=== PATIENT | male | born 1980 | race Caucasian/White ===

== ENCOUNTER 2022-01-17 14:00 | Emergency (ER) | payer BC ==
--- OUTSIDE RECORDS SUMMARY | 2022-01-17 14:05 | XMS REPORT | Continuity of Care Document ---
:1980 Author Organization [facility] t Address [address] [place] [address] Care Team Providers Name Role Phone [place] Marquise Vega Attending Clinician Unavailable EBONIE LYLES Attending Clinician Unavailable ALISON MCCARTHY Attending Clinician Unavailable Neeraj Root DO Attending Clinician Alison Hdez Attending Clinician Eve Hussein Attending Clinician Yaya Carroll Attending Clinician Unavailable EBONIE LYLES Admitting Clinician Unavailable Physician, No Primary or Family Admitting Clinician [facility] Payers Payer Name Policy Type Policy Number Effective Date Expiration Date S elan [facility] - [id number] 2013 00:00:00 OUT OF STATE Problems Condition Condition Condition Status Onset Resolution Last Treating Co mments Source Name Details Category Date Date Treatment Clinician Date No known No known Disease Unive rs active active ity of problems problems [facility] Allergies, Adverse Reactions, Alerts Allergy Allergy Status Severity Reaction(s) Onset Inactive Treating Comm ents Source Name Type Date Date Clinician gluten FA Active [facility] 7[facility] [place] [facility] gluten FA Active U internal [facility] bleed 7-16 [place] 00:00: d 00 [facility] NO KNOWN Drug Active Univers ALLERGIE Class ity of S [facility] Sudafed Adverse Active shortness of Co mmon Reaction breath [facility] Social History Social Habit Start Date Stop Date Quantity Comments Source Exposure to Not sure [facility] SARS-CoV-2 [facility] (event) Branch History of Chews Tobacco University of tobacco use [facility] Tobacco use and 2020-08-17 2020-08-17 Former user Universi ty of exposure 00:00:00 00:00:00 [facility] Sex Ass[birth year] At [birth year] [facility] y of 00:00:00 00:00:00 [facility] Smoking Status Start Date Stop Date Source Former smoker 2020-08-17 00:00:00 2020-08-17 00:00:00 [facility] Unknown if ever smoked [facility] Medications Ordered Filled Start Stop Current Ordering Indication Dosage Frequency Signature Comments Components Source Medication Medication Date Date Medication? Clinician (SIG) Name Name OMEPRAZOLE Yes 1{tbl} Take 1 Uni vers ORAL 3-01 tablet by ity of 19:33: mouth. [address] OMEPRAZOLE Yes 1{tbl} Take 1 Uni vers ORAL 3-01 tablet by ity of 19:33: mouth. [address] OMEPRAZOLE Yes 1{tbl} Take 1 Uni vers ORAL 3-01 tablet by ity of 19:33: mouth. [address] OMEPRAZOLE Yes 1{tbl} Take 1 Uni vers ORAL 3-01 tablet by ity of 19:33: mouth. [address] traZODone Yes TAKE 1 Univer s 100 mg 2-23 TABLET BY ity of tablet 00:00: MOUTH AT [address] NOVOLOG 100 Yes Univer s unit/mL 2-23 ity of cartridge 00:00: [address] traZODone Yes TAKE 1 Univer s 100 mg 2-23 TABLET BY ity of tablet 00:00: MOUTH AT [address] NOVOLOG 100 2021-0 Yes Univer s unit/mL 2-23 ity of cartridge 00:00: Medical Branch traZODone 2020-0 Yes TAKE 1 Univer s 100 mg 2-23 TABLET BY ity of tablet 00:00: MOUTH AT [place] 00 BEDTIME Medical Branch NOVOLOG 100 2020-0 Yes Univer s unit/mL 2-23 ity of cartridge 00:00: Medical Branch traZODone 2020-0 Yes TAKE 1 Univer s 100 mg 2-23 TABLET BY ity of tablet 00:00: MOUTH AT [place] 00 BEDTIME Medical Branch NOVOLOG 100 0 Yes Univer s unit/mL 2-23 ity of cartridge 00:00: [place] [facility] HYDROcodone 2020-0 2020- No 1{tbl} 1 tablet, Univers -acetaminop 08-04 Oral, ity of hen (NORCO 22:45: 22:11 ONCE, 1 Billy as 5) 5-325 mg 00 :00 dose, Tue Med ical tablet 1 08/04/20 at [facility] tablet 1645, KAMALJIT ketorolac 2020- No 60mg 60 mg, Unive rs (TORADOL) 08-04 Intramuscu ity of injection 22:45: 22:11 lar, ONCE, [place] 60 mg 00 :00 1 dose, [facility] 08/04/20 at 1645, KAMALJIT
Fa culty member approving Restricted medication : EMERGENCY ROOM, ibuprofen Yes [id number] 800mg Take 1 Univers 800 mg 2-16 [id number] tablet by ity of tablet 00:00: mouth [place] 00 every 8 Medical (eight) Branch hours as needed for Pain (scale 4-6). ibuprofen Yes [id number] 800mg Take 1 Univers 800 mg 2-16 [id number] tablet by ity of tablet 00:00: mouth [place] 00 every 8 Medical (eight) Branch hours as needed for Pain (scale 4-6). ibuprofen Yes [id number] 800mg Take 1 Univers 800 mg 2-16 [id number] tablet by ity of tablet 00:00: mouth [place] 00 every 8 Medical (eight) Branch hours as needed for Pain (scale 4-6). ibuprofen Yes [id number] 800mg Take 1 Univers 800 mg 2-16 [id number] tablet by ity of tablet 00:00: mouth [place] 00 every 8 Medical (eight) Branch hours as needed for Pain (scale 4-6). ibuprofen 2020-0 Yes [id number] 800mg Take 1 Univers 800 mg 2-16 [id number] tablet by ity of tablet 00:00: mouth [place] 00 every 8 Medical (eight) Branch hours as needed for Pain (scale 4-6). ibuprofen 2020-0 Yes [id number] 800mg Take 1 Univers 800 mg 2-16 [id number] tablet by ity of tablet 00:00: mouth [place] 00 every 8 Medical (eight) Branch hours as needed for Pain (scale 4-6). ibuprofen 2020-0 Yes [id number] 800mg Take 1 Univers 800 mg 2-16 [id number] tablet by ity of tablet 00:00: mouth [place] 00 every 8 Medical (eight) Branch hours as needed for Pain (scale 4-6). ibuprofen 2020-0 Yes [id number] 800mg Take 1 Univers 800 mg 2-16 [id number] tablet by ity of tablet 00:00: mouth [place] 00 every 8 Medical (eight) Branch hours as needed for Pain (scale 4-6). acetaminoph 2020- No 4647 1{tbl} Take 1 U nivers en-codeine 2-16 02-24 tablet by ity of 300-30 mg 00:00: 05:59 mouth [place] tablet 00 :00 every 6 Medical (six) Branch hours as needed for Pain (scale 7-10) for up to 7 days. Indication s: acute pain acetaminoph 2020-2020- No 4647 1{tbl} Take 1 U nivers en-codeine 2-16 02-24 tablet by ity of 300-30 mg 00:00: 05:59 mouth [place] tablet 00 :00 every 6 Medical (six) Branch hours as needed for Pain (scale 7-10) for up to 7 days. Indication s: acute pain acetaminoph 2020-2020- No 4647 1{tbl} Take 1 U nivers en-codeine 2-16 02-24 tablet by ity of 300-30 mg 00:00: 05:59 mouth [place] tablet 00 :00 every 6 Medical (six) Branch hours as needed for Pain (scale 7-10) for up to 7 days. Indication s: acute pain acetaminoph 2020- No 4647 1{tbl} Take 1 U nivers en-codeine 2-16 02-24 tablet by ity of 300-30 mg 00:00: 05:59 mouth [place] tablet 00 :00 every 6 Medical (six) Branch hours as needed for Pain (scale 7-10) for up to 7 days. Indication s: acute pain TRESIBA Yes Univers FLEXTOUCH 2-15 ity of U-100 100 00:00: [place] unit/mL (3 00 Medical mL) [facility] Univers FLEXTOUCH 2-15 ity of U-100 100 00:00: [place] unit/mL (3 00 Medical mL) In Branch TRESIBA Yes Univers FLEXTOUCH 2-15 ity of U-100 100 00:00: [place] unit/mL (3 00 Medical mL) In Branch TREBA Yes Univers FLEXTOUCH 2-15 ity of U-100 100 00:00: [place] unit/mL (3 00 Medical mL) In Branch meloxicam Yes Univers 7.5 mg 1-18 ity of tablet 00:00: [facility] meloxicam Yes Univers 7.5 mg 1-18 ity of tablet 00:00: [facility] meloxicam Yes Univers 7.5 mg 1-18 ity of tablet 00:00: [place] [facility] meloxicam Yes Univers 7.5 mg 1-18 ity of tablet 00:00: [facility] SERTraline 2019-06 Yes Univers 50 mg 2-28 ity of tablet 00:00: [facility] SERTraline 2019-06 Yes Univers 50 mg 2-28 ity of tablet 00:00: [place] [facility] Branch SERTraline 2019-06 Yes Univers 50 mg 2-28 ity of tablet 00:00: [facility] SERTraline 2019-06 Yes Univers 50 mg 2-28 ity of tablet 00:00: [address] Omeprazole Omeprazole Yes Marquise 1 capsule [place] 30 minutes Spirit before - [facility]I morning [facility] NovoLog NovoLog Yes Marquise 1 unit Commo n Flexpen Flexpen [place] [facility] Tresiba Tresiba Yes Marquise 37 units Com mon FlexTouch FlexTouch [place] Spir it - [facility] NovoLog NovoLog Yes Marquise not Common PenFill PenFill [place] defined Spiri t - [facility] Amoxicillin Amoxicillin Yes Marquise TAKE 1 [place] CAPSULE BY Spirit MOUTH - [facility]I EVERY [address] [facility] 10 DAYS [facility] Moxifloxaci Moxifloxaci Yes Marquise PUT 1 DROP Common n HCl n HCl [place] INTO LEFT Spirit EYE 3 - CHI TIMES A [facility] Besivance Besivance Yes Marquise INSTILL 1 [place] DROP INTO Spirit LEFT EYE 4 - CHI TIMES A [facility] InPen InPen Yes Marquise U UTD Common 100-Blue-No 100-Blue-No [place] Spirit vo vo - [facility] Vital Signs Vital Name Observation Time Observation Value Comments Source Heart rate 2020-08-17 19:28:00 82 /min [facility] Body height 2020-08-17 19:28:00 170.2 cm [facility] Body weight 2020-08-17 19:28:00 90.719 kg [facility] BMI 2020-08-17 19:28:00 31.32 kg/m2 [facility] Systolic blood 2020-08-17 19:28:00 128 mm[Hg] [facility] Diastolic blood 2020-08-17 19:28:00 77 mm[Hg] Un[facility] Systolic blood 2020-08-10 20:58:00 137 mm[Hg] [facility] 2020-08-10 20:58:00 90 mm[Hg] [facility] Heart rate 2020-08-10 20:57:00 100 /min [facility] Body height 2020-08-10 20:57:00 170.2 cm [facility] Body weight 2020-08-10 20:57:00 90.719 kg [facility] BMI 2020-08-10 20:57:00 31.32 kg/m2 [facility] Body weight 2020-08-04 18:51:00 90 kg [facility] Procedures Procedure Date / Time Performing Clinician Source Performed XR WRIST <3 VW LEFT 2020-08-17 19:36:43 Alison Mccarthy [facility] ED SPLINT APPLICATION 2020-08-04 21:00:00 Eve Nolan [facility] XR WRIST 3+ VW LEFT 2020-08-04 19:27:00 Eve Nolan [facility] NOTICE OF PRIVACY 2020-08-04 18:35:32 Doctor Unassigned, No Univ [facility] Name [facility] Encounters Start End Encounter Admission Attending Care Care Encounter Source Date/Time Date/Time Type Type Clinicians Facility Department ID 2021-11-09 Outpatient [place], STLMLC STLC [id number] Common 11:52:00 [facility] [address] [facility] 2021-07-14 Outpatient [place], STLMLC STLC [id number] Common 13:36:29 [facility] [address] [facility] 2021-07-14 Outpatient [place], STLMLC STLMLC [id number] Common 13:35:18 Marquise 54[address] [facility] 2021-07-14 Outpatient [place], STLMLC STLMLC [id number] Common 13:34:07 [facility] [address] [facility] 2021-07-14 Outpatient [place], STLMLC STLMLC [id number] Common 13:25:04 [facility] [address] [facility] 2021-07-14 Outpatient [place], STLMLC STLMLC [id number] Common 13:20:57 Marquise [address] [facility] 2021-07-14 Outpatient [place], STLMLC STLMLC [id number] Common 12:55:29 [facility] [address] [facility] 2021-07-14 Outpatient [place], STLMLC STLMLC [id number] Common 12:51:18 [facility] [address] [facility] 2021-07-14 Outpatient [place], STLMLC STLMLC [id number] Common 12:48:00 Marquise [address] [facility] 2021-07-14 Outpatient [place], STLMLC STLMLC [id number] Common 12:25:27 Marquise [facility] 2021-07-14 Outpatient [place], STLMLC STLMLC [id number] Common 12:24:41 Marquise [facility] 2021-07-14 Outpatient [place], STLMLC STLMLC [id number] Common 12:15:12 Marquise [address] [facility] 2021-07-14 Outpatient [place], STLMLC STLMLC [id number] Common 11:59:01 Marquise [facility] 2021-07-14 Outpatient [place], STLMLC STLMLC [id number] Common 11:57:51 Marquise [address] [facility] 2021-07-14 Outpatient [place], STLMLC STLC [id number] Common 11:36:14 Marquise 30[address] [facility] 2021-07-14 Outpatient [place], STLMLC STLMLC [id number] Common 11:35:57 Marquise 12[address] [facility] 2021-07-14 Outpatient [place], STLMLC STLC [id number] Common 11:29:06 Marquise [address] [facility] 2021-07-14 Outpatient [place], STLMLC STLMLC [id number] Common 11:17:40 Marquise [address] [facility] 2021-07-14 Outpatient [place], STLMLC STLMLC [id number] Common 11:17:24 Marquise 9[address] [facility] 2021-07-14 Outpatient [place], STLMLC STLMLC [id number] Common 11:17:00 Marquise 116[address] [facility] 2021-07-14 Outpatient [place], STLMLC STLMLC [id number] Common 11:08:48 Marquise [address] [facility] 2021-07-14 Outpatient [place], STLMLC STLMLC [id number] Common 11:08:30 [facility] [address] [facility] 2021-07-14 Outpatient [place], STLMLC STLMLC [id number] Common 11:08:14 [facility] [address] [facility] 2021-11-26 2021-11-26 ambulatory STLMLC STLMLC [id number] Common 00:00:00 00:00:00 [facility] 2021-11-11 2021-11-11 ambulatory STLMLC STLMLC [id number] Common 00:00:00 00:00:00 [facility] 2021-10-13 2021-10-13 ambulatory STLMLC STLMLC [id number] Common 00:00:00 00:00:00 [facility] 2021-10-13 2021-10-13 ambulatory STLMLC STLMLC [id number] Common 00:00:00 00:00:00 [facility] 2021-09-28 2021-09-28 Outpatient LYLES, [facility] [id number] 776 [place] 00:00:00 00:00:[address] 2021-09-24 2021-09-24 Outpatient LYLES, [facility] [id number] 108 [place] 00:00:00 00:00:00 [place] [address] 2021-09-24 2021-09-24 Outpatient LYLES, [facility] [id number] 778 [place] 00:00:00 00:00:00 SVETANG [address] 2021-05-24 2021-05-24 ambulatory STLMLC STLMLC [id number] Common 00:00:00 00:00:00 [facility] 2021-05-24 2021-05-24 ambulatory STLMLC STLMLC [id number] Common 00:00:00 00:00:00 [facility] 2021-02-11 2021-02-11 Outpatient STLMLC STLMLC [id number] Common 00:00:00 00:00:00 [facility] 2021-02-10 2021-02-10 Outpatient STLMLC STLMLC [id number] Common 00:00:00 00:00:00 [facility] 2021-01-25 2021-01-25 Outpatient STLMLC STLMLC [id number] Common 00:00:00 00:00:00 [facility] 2021-01-25 2021-01-25 Outpatient STLMLC STLMLC [id number] Common 00:00:00 00:00:00 [facility] 2020-12-17 2020-12-17 Outpatient STLMLC STLMLC [id number] Common 00:00:00 00:00:00 [facility] 2020-12-16 2020-12-16 Outpatient STLMLC STLMLC [id number] Common 00:00:00 00:00:00 [facility] 2020-12-16 2020-12-16 Outpatient STLMLC STLMLC [id number] Common 00:00:00 00:00:00 [facility] 2020-12-09 2020-12-09 Outpatient STLMLC STLMLC [id number] Common 00:00:00 00:00:00 [facility] 2020-12-08 2020-12-08 Outpatient STLMLC STLMLC [id number] Common 00:00:00 00:00:00 [facility] 2020-12-03 2020-12-03 Outpatient STLMLC STLMLC [id number] Common 00:00:00 00:00:00 [facility] 2020-12-03 2020-12-03 Outpatient STLMLC STLMLC [id number] Common 00:00:00 00:00:00 [facility] 2020-12-02 2020-12-02 Outpatient STLMLC STLMLC [id number] Common 00:00:00 00:00:00 [facility] 2020-11-30 2020-11-30 Outpatient STLMLC STLMLC [id number] Common 00:00:00 00:00:00 [facility] 2020-11-26 2020-11-26 Outpatient STLMLC STLMLC [id number] Common 00:00:00 00:00:00 [facility] 2020-09-29 2020-09-29 Outpatient STLMLC STLMLC [id number] Common 00:00:00 00:00:00 [facility] 2020-09-29 2020-09-29 Outpatient STLMLC STLMLC [id number] Common 00:00:00 00:00:00 [facility] 2020-09-29 2020-09-29 Outpatient STLMLC STLMLC [id number] Common 00:00:00 00:00:00 [facility] 2020-09-28 2020-09-28 Outpatient Rickey MCCARTHY [facility] [id number] Univers 13:30:00 13:30:00 ALISON [id number] [facility] [place] [facility] 2020-09-28 2020-09-28 [facility] [id number] Univers 13:30:00 13:30:00 ALISON [facility] [place] [facility] 2020-09-03 2020-09-03 [facility] [id number] Univers 00:00:00 00:00:00 Outreach [facility] [id number] i ty of [facility] [id number] [place] [id number] Me dical [address] [place] 2020-08-17 2020-08-17 [facility] [id number] Univers 13:36:43 23:59:00 Encounter [facility] [id number] ity of Surgical [id number] Billy as Specialti [id number] Me dical es [address] 2020-08-17 2020-08-17 Office [facility] [id number] Univers 13:27:10 13:56:38 Visit [facility] [id number] it y of Surgical [id number] [place] as Specialti [phone] Me dical es [address] 2020-08-17 2020-08-17 [facility] [id number] Univers 13:30:00 13:30:00 ALISON [id number] [facility] [place] [facility] 2020-08-17 2020-08-17 Outpatient R [facility] [id number] Univers 13:30:00 13:30:00 [facility] 2020-08-11 2020-08-11 Outpatient STLC STLC [id number] Common 00:00:00 00:00:00 [facility] 2020-08-10 2020-08-10 Office [facility] [place] [id number] Univers 14:40:16 15:34:19 Visit [facility] [id number] it y of Surgical [id number] [place] as Specialti [id number] Me dical es 198 [facility] 2020-08-10 2020-08-10 Outpatient Ric[facility] [id number] Univers 15:00:00 15:00:00 [facility] 2020-08-10 2020-08-10 Outpatient [facility] [id number] Common 00:00:00 00:00:00 [facility] 2020-08-10 2020-08-10 Letter [facility] [place] [id number] Univers 00:00:00 00:00:00 (Out) [facility] [id number] it y of Surgical [id number] [place] as Specialti [id number] Ok dical es 198 [facility] 2020-08-04 2020-08-04 [facility] [id number] Univers 13:09:00 23:06:[address] [id number] i ty [place] 4[place]2.7.2.686 [place] [id number] [address] 2020-08-04 2020-08-04 Emergency X [facility] ERT [id number] Univers 12:31:00 12:31:00 [facility] [place] [facility] 2020-06-05 2020-06-05 Outpatient STLMLC STLMLC [id number] Common 00:00:00 00:00:00 [facility] 2020-05-05 2020-05-05 Outpatient STLMLC STLMLC [id number] Common 00:00:00 00:00:00 [facility] 2020-04-29 2020-04-29 Outpatient STLMLC STLMLC [id number] Common 00:00:00 00:00:00 [facility] 2020-04-21 2020-04-21 Outpatient STLMLC STLMLC [id number] Common 00:00:00 00:00:00 [facility] 2020-04-14 2020-04-14 Outpatient STLMLC STLMLC [id number] Common 00:00:00 00:00:00 [facility] 2020-04-06 2020-04-06 Outpatient STLMLC STLMLC [id number] Common 00:00:00 00:00:00 [facility] 2020-03-23 2020-03-23 Outpatient STLMLC STLMLC [id number] Common 00:00:00 00:00:00 [facility] 2020-03-18 2020-03-18 Outpatient STLMLC STLMLC [id number] Common 00:00:00 00:00:00 [facility] 2020-02-25 2020-02-25 Out[facility] [id number] Common 08:30:00 08:30:00 [place] [address] [facility] 2020-02-17 2020-02-17 Outpatient [facility] [id number] Common 16:00:00 16:00:00 [place] [address] Sp[address] [facility] 2020-02-03 2020-02-03 Outpatient [facility] [id number] Common 10:00:00 10:00:00 [place] [address] [facility] 2020-01-27 2020-01-27 Outpatient [facility] [id number] Common 09:45:00 09:45:00 [place] [address] [facility] 2020-01-20 2020-01-20 Outpatient [facility] [id number] Common 10:40:00 10:40:00 [place] [address] [facility] 2020-01-10 2020-01-10 Outpatient [facility] [id number] Common 10:00:00 10:00:00 [place] [address] [facility] 2020-01-07 2020-01-07 Out[facility] [id number] Common 08:30:00 08:30:00 [place] [address] [facility] 2020-01-02 2020-01-02 Outpatient Carly [facility] RADI [id number] [id number] [facility] 10:00:00 10:00:[id number] [place] [address] 2019-12-19 2019-12-19 [facility] [id number] Common 08:00:00 08:00:00 t [facility] 2019-11-29 2019-11-29 Out[facility] [id number] Common 09:30:00 09:30:00 [place] [address] [facility] 2019-11-05 2019-11-05 Outpatient [facility] [id number] Common 08:30:00 08:30:00 t [place] [address] [facility] 2019-10-18 2019-10-18 Out[facility] [id number] Common 08:45:00 08:45:00 t [facility] and [facility] 2019-09-25 2019-09-25 Out[facility] [id number] Common 11:00:00 11:00:00 t [facility] 2019-09-05 2019-09-05 Out[facility] [id number] Common 08:00:00 08:00:00 [place] [address] Drive [facility] 2019-08-16 2019-08-16 Outpatient Dino Sunt [id number] Common 11:39:00 11:39:00 t [place] [address] Drive [facility] 2019-08-07 2019-08-07 Outpatient [facility] [id number] Common 11:30:00 11:30:00 [place] [address] Drive [facility] 2019-07-01 2019-07-01 [facility] [id number] Common 11:30:00 11:30:00 [place] [address] [facility] 2019-05-29 2019-05-29 [facility] [id number] Common 10:45:00 10:45:00 [place] [address] Drive [facility] Results Test Description Test Time Test Comments Results Result Comments Source SARS-CoV-2 (COVID-19) RNA [Presence] in Respiratory sp ecimen by 2021-09-24 19:43:34 FREDDIE with probe detection Test Item Value Reference Range Interpretation Comme nts SARS-CoV-2 (COVID-19) RNA [Presence] in Respiratory specimen by Not detected FREDDIE with probe detection (test code = 59874-9) Whether patient is employed in a healthcare setting (test code = Un known 10713-1) Whether the patient has symptoms related to condition of interest U nknown (test code = 71853-0) Whether the patient was hospitalized for condition of interest Unkn own (test code = 59296-9) Whether the patient was admitted to intensive care unit (ICU) for U nknown condition of interest (test code = 79690-3) Whether patient resides in a congregate care setting (test code = U nknown 05703-0) status (test code = 83180-8) Unknown Date and time of symptom onset (test code = 38562-8) Unknown XR WRIST <3 VW [id number] 19:56:20No change from previous [facility] WRIST 3+ VW [id number] 20:29:24 1. ?Subtle lucency anterior distal aspect of the dorsal radius, which isonly seen on the lateral view; possibly represent an acute nondisplacedfracture or superimposition artifact. Correlate with point tendernessrecommended. 2. ?Otherwise, anatomic alignment is maintained without additionalfractures e vident. RL: [id number] End of Report ORDERING PROVIDER: NICK NOLAN HISTORY: wrist pain, slipped on ice TECHNIQUE: AP, oblique, and lateral views of the right wrist. COMPARISON: None FINDINGS: There is a subtle lucency anterior distal aspect of the dorsal radius,which is only seen on the lateral view; possibly represent an acutenondisplaced fracture or superimposition artifact. Anatomic alignment isotherwise maintained. No additional fractures are detected. Questionablemild dorsal soft tissue edema. [facility], Radiant Results Inft User - 08/04/2020 2:30 PM CSTORDERING PROVIDER: EVE BONILLAORY: wrist pain, slipped on ice TECHNIQUE: AP, oblique, and lateral views of the right wrist. COMPARISON: NoneFINDINGS: There is a subtle lucency anterior distal aspect of the dorsal radius,which is only seen on the lateral view; possibly represent an acutenondisplaced fracture or superimposition artifact. Anatomic alignment isotherwise maintained. No additional fractures are detected. Questionablemild dorsal soft tissue edema.IMPRESSION1. Subtle lucency anterior distal aspect of the dorsal radius, which isonly seen on the lateral view; possibly represent an acute nondisplacedfracture or superimposition artifact. Correlate with point tendernessrecommended.2. Otherwise, anatomic alignment is maintained without additionalfractures evident.[id number] of Report UnCH[facility] N[facility]K [id number] 12:37:00 Name: JAYDEN ZAYAS : 1980 Age/S: 39 / M [address] Unit #: [id number] Loc: [place] [address] Phys: Yaya Carroll III, MD Acct: [id number] Dis Date: Status: REG CLI P MIKE #: [phone] Exam Date: 01/02/2020 1150 FAX #: Reason: PHRYN DYSPHAGIA EXAMS: CPT: [id number] CT NECK W/CONTRAST 39095 CT NECK WITH CONTRAST. INDICATION: Pharyngoesophageal dysphasia Location: B2 TECHNIQUE: Axial 2.5mm images through the soft tissues of the neck obtained after contrast, with co tyrell and sagittal reformats rendered. Dose lowering technique with automatic exposure control utilized. FINDINGS: The vallecula and piriform sinuses are within normal limits. Normal-appearing the epiglottis and aryepiglottic folds. Airway is patent. Symmetric appearing vocal cords. No abnormality atthe base of the tongue. The parotid and submandibular glands are within normal limits. There is no lymphadenopathy evident. Thyroid gland is within normal limits. No abnormality of the thoracic inlet seen. Mastoid air cells are within normal limits. External auditory canals are within normal limits. Vasculature is grossly within normal limits. Upper lungs are clear. There is straightening of the cervical lordosis. There is no significant spondylotic changes evident.. IMPRESSION: 1. No acute abnormality detected. PAGE 1 Signed Report (CONTINUED) Name: JAYDEN ZAYAS Vaughn : 1980 Age/S:39 / M [address] Unit #: [id number] Loc: [place] [address] [id number] Dis Date: Status: REG CLI PHONE #: [phone] Exam Date: 01/02/2020 1150 FAX #: Reason: PHRYN DYSPHAGIA EXAMS: CPT: [id number] CT NECK W/CONTRAST 89679 <Continued> at 1237 Reported and signed by: Suman Trejo M.D. CC: Yaya Carroll III, MD Technologist:Bari Vasquez RT(R)(CT) CTDI: DLP: Trnscb Date/Time: 01/02/2020 (1237) [id number] Orig Print D/T: S: 01/02/2020 (8451) PAGE 2 Signed ReportBLOOD UREA [id number] 11:12:00 Test Item Value Reference Range Interpretation Comments BLOOD UREA NITROGEN (test code = 16 MG/DL 7-18 N BUN) [id number] 11:12:00 Test Item Value Reference Range Interpretation Comments CREATININE (test code = CREAT) 1.1 MG/DL 0.8-1.3 N
--- NOTE | 2022-01-17 15:22 | RAD REPORT ---
EXAM DESCRIPTION: CT - Head Brain Wo Cont - 01/17/2022 3:03 pm CLINICAL HISTORY: head injury Trauma, head injury COMPARISON: No comparisons TECHNIQUE: All CT scans are performed using dose optimization technique as appropriate and may inclu de automated exposure control or mA/KV adjustment according to patient size. FINDINGS: No intracranial hemorrhage, hydrocephalus or extra-axial fluid collection.No areas of brai n edema or evidence of midline shift. The paranasal sinuses and mastoids are clear. The calvarium is intact. IMPRESSION: No acute intracranial abnormality.
[2022-01-17 17:01] VITALS: BP 140/84; TEMP 98.3; O2SAT 98
--- NOTE | 2022-01-19 09:34 | EDPHYS ---
Physician Documentation [facility] Name: Drew Dillon Age: 41 yrs Sex: Male : 1980 Arrival Date: 01/17/2022 Time: 14:02 Bed 9 Private MD: Marquise Meadows ED Physician Eddie Barron HPI: 01/17 16:50 This 41 yrs old Male presents to ER via Ambulatory with complaints of Dizziness, Fall kb Injury - 5 days ago, Head Injury With LOC-Adult, Nausea/Vomiting. 16:50 The patient or guardian reports pain. The complaints affect the left occipital area and kb right occipital area. Context of injury: The problem was sustained outdoors, resulted from a fall. Onset: The symptoms/episode began/occurred 5 day(s) ago. Associated signs and symptoms: Loss of consciousness: This patient experience a loss of consciousness, Pertinent positives: loss of conciousness, nausea. Severity of symptoms: At their worst the symptoms were moderate, in the emergency department the symptoms are unchanged. The patient has not experienced similar symptoms in the past. The patient has not recently seen a physician. Patient states he tripped and fell backwards on striking head on concrete. States he has had headache dizziness, nausea since the incident. Coworkers told him to come get checked out.. Historical: - Allergies: 14:10 Sudafed; mccall - Home Meds: 14:10 Novolin R Sub-Q [Active]; sertraline 25 mg oral tab 1 tab once daily [Active]; mccall - PMHx: 14:10 Diabetes mellitus; PTSD; mccall - PSHx: 14:10 hernia repair; mccall - Immunization history:: Adult Immunizations up to date. - Social history:: Smoking status: . ROS: 16:49 Constitutional: Negative for fever, chills, and weight loss. kb 16:49 Abdomen/GI: Positive for nausea, Negative for vomiting. 16:49 Neuro: Positive for dizziness, headache. 16:49 All other systems are negative. Exam: 16:49 Constitutional: This is a well developed, well nourished patient who is awake, alert, kb and in no acute distress. Head/Face: Normocephalic, atraumatic. Eyes: Pupils equal round and reactive to light, extra-ocular motions intact. Lids and lashes normal. Conjunctiva and sclera are non-icteric and not injected. Cornea within normal limits. Periorbital areas with no swelling, redness, or edema. ENT: Moist Mucous membranes Cardiovascular: Regular rate and rhythm with a normal S1 and S2. No gallops, murmurs, or rubs. No pulse deficits. Respiratory: Respirations even and unlabored. No increased work of breathing. Talking in full sentences Skin: Warm, dry with normal turgor. Normal color. MS/ Extremity: Pulses equal, no cyanosis. Neurovascular intact. Full, normal range of motion. Neuro: Awake and alert, GCS 15, oriented to person, place, time, and situation. Moves all extremities. Normal gait. Psych: Awake, alert, with orientation to person, place and time. Behavior, mood, and affect are within normal limits. Vital Signs: 14:08 BP 140 / 84; Pulse 74; Resp 17; Temp 98.3(T); Pulse Ox 98% on R/A; Weight 87.09 kg; mccall Height 5 ft. 7 in. (170.18 cm); 14:08 Body Mass Index 30.07 (87.09 kg, 170.18 cm) mccall [place] Coma Score: 16:50 Eye Response: spontaneous(4). Verbal Response: oriented(5). Motor Response: obeys kb commands(6). Total: 15. MDM: 15:27 Patient medically screened. kb 16:50 Data reviewed: vital signs, nurses notes. Data interpreted: Pulse oximetry: on room air kb is 98 %. Interpretation: normal. 16:52 Counseling: I had a detailed discussion with the patient and/or guardian regarding: the kb historical points, exam findings, and any diagnostic results supporting the discharge/admit diagnosis, radiology results, the need for outpatient follow up, a family practitioner, to return to the emergency department if symptoms worsen or persist or if there are any questions or concerns that arise at home. 01/17 14:30 Order name: CT Head Brain wo Cont; Complete Time: 15:23 kb Administered Medications: No medications were administered Disposition: 18:25 Co-signature as Attending Physician, Eddie Barron MD. rn Disposition Summary: 01/17/22 15:47 Discharge Ordered Location: Home kb Condition: Stable kb Diagnosis - Unspecified injury of head, initial encounter kb Followup: kb - With: Emergency Department - When: As needed - Reason: Worsening of condition Followup: kb - With: Private Physician - When: 2 - 3 days - Reason: Recheck today's complaints, Continuance of care, Re-evaluation by your physician Discharge Instructions: - Discharge Summary Sheet kb - Concussion, Adult, [id number] kb Forms: - Medication Reconciliation Form kb - Thank You Letter kb - Antibiotic Education kb - Prescription Opioid Use kb Prescriptions: - Meclizine 25 mg Oral Tablet - take 1 tablet by ORAL route every 8 hours As needed; 15 tablet; Refills: 0, kb Product Selection Permitted - Zofran 4 mg Oral Tablet - take 1 tablet by ORAL route every 6 hours As needed; 20 tablet; Refills: 0, kb Product Selection Permitted Signatures: Dispatcher [employer] EDAsya Russell, NORY AUSTIN-Eddie Rodrigues MD MD rn Mary Bates RN RN mccall Corrections: (The following items were deleted from the chart) 14:13 14:10 PSHx: gallballder removal; gallbladder removal; mccall mccall
--- NOTE | 2022-01-19 09:34 | ER ---
Nurse's Notes [facility] Name: Drew Dillon Age: 41 yrs Sex: Male : 1980 Arrival Date: 01/17/2022 Time: 14:02 Bed 9 Private MD: Marquise Meadows Diagnosis: Unspecified injury of head, initial encounter Presentation: 01/17 14:08 Chief complaint: Chief complaint: Patient states: pt reports scooting back, fell, hit mccall the back of his head, LOC for about a minute x 5 days ago. pt having Nausea, dizziness and head aches. pt is not on blood thinners. 14:08 Coronavirus screen: Vaccine status: Patient reports being unvaccinated. Ebola Screen: mccall Patient denies travel to an Ebola-affected area in the 21 days before illness onset. Initial Sepsis Screen: Does the patient meet any 2 criteria? No. Patient's initial sepsis screen is negative. Does the patient have a suspected source of infection? No. Patient's initial sepsis screen is negative. Risk Assessment: Do you want to hurt yourself or someone else? Patient reports no desire to harm self or others. Onset of symptoms was January 12, 2022. 14:08 Method Of Arrival: Ambulatory mccall 14:08 Acuity: VANGIE 3 mccall 14:13 Chief complaint:. mccall Historical: - Allergies: 14:10 Sudafed; mccall - Home Meds: 14:10 Novolin R Sub-Q [Active]; sertraline 25 mg oral tab 1 tab once daily [Active]; mccall - PMHx: 14:10 Diabetes mellitus; PTSD; mccall - PSHx: 14:10 hernia repair; mccall - Immunization history:: Adult Immunizations up to date. - Social history:: Smoking status: . Screenin:55 Abuse screen: Denies threats or abuse. Denies injuries from another. Nutritional ph screening: No deficits noted. Tuberculosis screening: No symptoms or risk factors identified. Fall Risk None identified. Assessment: 15:55 General: Appears in no apparent distress. comfortable, well groomed, Behavior is calm, ph cooperative, appropriate for age. Pain: Complains of pain in right occipital area and left occipital area. Neuro: Level of Consciousness is awake, alert, obeys commands, Oriented to person, place, time, situation, Moves all extremities. Full function Speech is normal, Facial symmetry appears normal. Cardiovascular: Capillary refill < 3 seconds in bilateral fingers Patient's skin is warm and dry. Respiratory: Airway is patent Respiratory effort is even, unlabored. GI: Reports nausea. Derm: Skin is intact, is healthy with good turgor, Skin is pink, warm \T\ dry. Musculoskeletal: Circulation, motion, and sensation intact. Range of motion: intact in all extremities. Vital Signs: 14:08 BP 140 / 84; Pulse 74; Resp 17; Temp 98.3(T); Pulse Ox 98% on R/A; Weight 87.09 kg; mccall Height 5 ft. 7 in. (170.18 cm); 14:08 Body Mass Index 30.07 (87.09 kg, 170.18 cm) mccall [place] Coma Score: 16:50 Eye Response: spontaneous(4). Verbal Response: oriented(5). Motor Response: obeys kb commands(6). Total: 15. ED Course: 14:02 Patient arrived in ED. am2 14:02 Marquise Meadows DO is Private Physician. am2 14:07 Asya Lawler FNP-C is [facility]. kb 14:07 Eddie Barron MD is Attending Physician. kb 14:10 Triage completed. mccall 15:05 CT Head Brain wo Cont In Process Unspecified. EDMS 15:55 Alondra Hawkins, RN is Primary Nurse. ph 15:56 Patient has correct armband on for positive identification. Bed in low position. Call ph light in reach. Side rails up X 1. Pulse ox on. NIBP on. Door closed. Noise minimized. 15:56 Arm band placed on Patient placed in an exam room. ph 16:02 No provider procedures requiring assistance completed. Patient did not have IV access ph during this emergency room visit. Administered Medications: No medications were administered Medication: 15:56 VIS not applicable for this client. ph Outcome: 15:47 Discharge ordered by . kb 16:02 Patient left the ED. ph 16:02 Discharged to home ambulatory. ph 16:02 Condition: good 16:02 Discharge instructions given to patient, Instructed on discharge instructions, follow up and referral plans. medication usage, Demonstrated understanding of instructions, follow-up care, medications, Prescriptions given X 2. Signatures: Dispatcher [employer] EDOK Asya Lawler FNP-C FNP-Ckb Hall, Alondra, RN RN Pacheco Mireya am2 Mary Bates RN RN ha Corrections: (The following items were deleted from the chart) 14: 14:08 Chief complaint: mccall 14:08 Chief complaint: Patient states: pt reports scooting back, fell, hit the back of mccall his head, LOC for about a minute x 5 days ago. pt having Nausea, dizziness and head aches. pt is not on blood thinners Chief complaint: Patient states: pt reports scooting back, fell, hit the back of his head, LOC for about a minute x 5 days ago. pt having Nausea, dizziness and head aches. pt is not on blood thinners 14:10 PSHx: gallballder removal; gallbladder removal; mccall mccall
== END 2022-01-17 16:02 | disposition home or self-care (01) ==
LOC: ER 14:00
DX: S09.90XA Unspecified injury of head, initial encounter (principal); R42 Dizziness and giddiness; R11.0 Nausea; E11.9 Type 2 diabetes mellitus without complications; Z79.4 Long term (current) use of insulin; Z88.8 Allergy status to other drugs, medicaments and biological substances
CPT/HCPCS: 70450; 99283